=== PATIENT | female | born 1950 | race Caucasian/White ===

== ENCOUNTER 2018-02-19 13:13 | Outpatient (CLI) | payer MEDICARE | END 2018-02-19 13:14 | disposition home or self-care (01) | LOC: BICMAMMO 13:13 | PROVIDERS: ATTEND Internal Medicine | DX: Z12.31 Encounter for screening mammogram for malignant neoplasm of breast (principal); M85.88 Other specified disorders of bone density and structure, other site; Z78.0 Asymptomatic menopausal state; Z80.3 Family history of malignant neoplasm of breast | CPT/HCPCS: 77063; 77067; 77080 ==

== ENCOUNTER 2019-02-20 10:25 | Outpatient (CLI) | payer MEDICARE ==
--- NOTE | 2019-02-20 11:02 | MMO ---
Bilateral MAMMO Bilat Screen [facility]. CLINICAL HISTORY: Patient is 68 years old and is seen for screening. The patient has the following family history of breast cancer: maternal grandmother. The patient has no personal history of cancer. VIEWS: The views performed were: bilateral craniocaudal with tomosynthesis and bilateral mediolateral oblique with tomosynthesis. FILMS COMPARED: The present examination has been compared to prior imaging studies performed at [facility] on 02/02/2015, 02/06/2016, 02/06/2017 and 02/19/2018. MAMMOGRAM FINDINGS: There are scattered fibroglandular densities. There are no suspicious masses, calcifications or areas of architectural distortion. There are benign appearing calcifications in the left breast. There are no suspicious masses, suspicious calcifications, or new areas of architectural distortion. IMPRESSION: THERE IS NO MAMMOGRAPHIC EVIDENCE OF MALIGNANCY. A ROUTINE FOLLOW-UP MAMMOGRAM IN 1 YEAR IS RECOMMENDED. THE RESULTS OF THIS EXAM WERE SENT TO THE PATIENT. ACR BI-RADS Category 2 - Benign finding MAMMOGRAPHY NOTE: 1. A negative mammogram report should not delay a biopsy if a dominant of clinically suspicious mass is present. 2. Approximately 10% to 15% of breast cancers are not detected by mammography. 3. Adenosis and dense breasts may obscure an underlying neoplasm. Reported by: KASHIF BARTLETT MD Electonically Signed: [id number]
== END 2019-02-20 10:26 | disposition home or self-care (01) ==
LOC: BICMAMMO 10:25
PROVIDERS: ATTEND Internal Medicine
DX: Z12.31 Encounter for screening mammogram for malignant neoplasm of breast (principal); Z80.3 Family history of malignant neoplasm of breast
CPT/HCPCS: 77063; 77067

== ENCOUNTER 2020-02-29 09:07 | Outpatient (CLI) | payer MEDICARE ==
--- NOTE | 2020-02-29 09:57 | MMO ---
Bilateral MAMMO Bilat Screen [facility]. CLINICAL HISTORY: Patient is 69 years old and is seen for screening. The patient has the following family history of breast cancer: maternal grandmother. The patient has no personal history of cancer. VIEWS: The views performed were: bilateral craniocaudal with tomosynthesis and bilateral mediolateral oblique with tomosynthesis. FILMS COMPARED: The present examination has been compared to prior imaging studies performed at [facility] on 02/06/2016, 02/06/2017, 02/19/2018 and 02/20/2019. This study has been interpreted with the assistance of computer-aided detection. MAMMOGRAM FINDINGS: There are scattered fibroglandular densities. There are no suspicious masses, suspicious calcifications, or new areas of architectural distortion. IMPRESSION: THERE IS NO MAMMOGRAPHIC EVIDENCE OF MALIGNANCY. A ROUTINE FOLLOW-UP MAMMOGRAM IN 1 YEAR IS RECOMMENDED. THE RESULTS OF THIS EXAM WERE SENT TO THE PATIENT. ACR BI-RADS Category 1 - Negative MAMMOGRAPHY NOTE: 1. A negative mammogram report should not delay a biopsy if a dominant of clinically suspicious mass is present. 2. Approximately 10% to 15% of breast cancers are not detected by mammography. 3. Adenosis and dense breasts may obscure an underlying neoplasm. Reported by: BARRY HYATT MD Electonically Signed: [id number]
--- NOTE | 2020-02-29 10:00 | BD ---
EXAM: Bone densitometry using DEXA HISTORY: 69 yo female. Screening for postmenopausal osteoporosis FINDINGS: L1--bone mineral density 0.730 g/sq cm; T score -2.4 ; Z score -0.5 L2--bone mineral density 0.875 g/sq cm; T score -1.4 ; Z score 0.6 L3--bone mineral density 0.951 g/sq cm; T score -1.2 ; Z score 0.9 L4--bone mineral density 1.193 g/sq cm; T score 1.2 ; Z score 3.4 Total L1-L4--bone mineral density 0.948 g/sq cm; T score -0.9 ; Z score 1.2 Left femoral neck--bone mineral density0.710; T score -1.3 ; Z score 0.5 Total proximal left femur--bone mineral density 0.727; T score -1.8 ; Z score -0.3 The 10 year fracture risk for a major osteoporotic fracture is 8.4% and for a hip fracture is 1.0%. IMPRESSION: Osteopenia
== END 2020-02-29 09:08 | disposition home or self-care (01) ==
LOC: BICMAMMO 09:07
PROVIDERS: ATTEND Internal Medicine
DX: Z12.31 Encounter for screening mammogram for malignant neoplasm of breast (principal); Z13.820 Encounter for screening for osteoporosis; M85.89 Other specified disorders of bone density and structure, multiple sites; Z80.3 Family history of malignant neoplasm of breast
CPT/HCPCS: 77063; 77067; 77080

== ENCOUNTER 2021-01-06 16:07 | Outpatient (CLI) | payer MEDICARE | END 2021-01-06 16:08 | disposition home or self-care (01) | LOC: BICRAD 16:07 | PROVIDERS: ATTEND Nurse Practitioner Family | DX: M25.462 Effusion, left knee (principal); M79.89 Other specified soft tissue disorders; M11.262 Other chondrocalcinosis, left knee ==

== ENCOUNTER 2022-03-28 10:03 | Outpatient (CLI) | payer MEDICARE | END 2022-03-28 10:04 | disposition home or self-care (01) | LOC: BICMAMMO 10:03 | PROVIDERS: ATTEND Internal Medicine | DX: Z12.31 Encounter for screening mammogram for malignant neoplasm of breast (principal); Z80.3 Family history of malignant neoplasm of breast | CPT/HCPCS: 77063; 77067 ==

== ENCOUNTER 2022-04-23 09:58 | Outpatient (CLI) | payer MEDICARE | END 2022-04-23 09:59 | disposition home or self-care (01) | LOC: BICMAMMO 09:58 | PROVIDERS: ATTEND Internal Medicine | DX: Z13.820 Encounter for screening for osteoporosis (principal); Z78.0 Asymptomatic menopausal state | CPT/HCPCS: 77080 ==

== ENCOUNTER 2023-12-18 15:41 | Outpatient (CLI) | payer MEDICARE | END 2023-12-18 15:42 | disposition home or self-care (01) | LOC: BICRAD 15:41 | PROVIDERS: ATTEND Internal Medicine | DX: R05.9 Cough, unspecified (principal) | CPT/HCPCS: 71046 ==